=== PATIENT | female | born 1980 | race Caucasian/White ===

== ENCOUNTER 2017-03-13 17:41 | Emergency (ER) | payer MEDICAID ==
[2017-03-13 18:53] LABS: HCG URINE NEGATIVE (NEGATIVE)
== END 2017-03-13 20:38 | disposition home or self-care (01) ==
LOC: D.ER 17:41
PROVIDERS: Emergency Medicine
DX: S39.012A Strain of muscle, fascia and tendon of lower back, initial encounter (principal); X58.XXXA Exposure to other specified factors, initial encounter; Y93.89 Activity, other specified; Y92.89 Other specified places as the place of occurrence of the external cause; M62.838 Other muscle spasm; M54.30 Sciatica, unspecified side; F32.9 Major depressive disorder, single episode, unspecified; F17.200 Nicotine dependence, unspecified, uncomplicated

== ENCOUNTER 2017-05-26 16:34 | Emergency (ER) | payer MEDICAID | END 2017-05-26 16:42 | disposition left against medical advice (07) | LOC: D.ER 16:34 | DX: R52 Pain, unspecified (principal) ==

== ENCOUNTER 2017-06-02 06:40 | Emergency (ER) | payer MEDICAID | END 2017-06-02 07:09 | disposition home or self-care (01) | LOC: D.ER 06:40 | DX: M53.3 Sacrococcygeal disorders, not elsewhere classified (principal); F32.9 Major depressive disorder, single episode, unspecified; F17.200 Nicotine dependence, unspecified, uncomplicated ==

== ENCOUNTER 2018-01-02 19:13 | Emergency (ER) | payer MEDICAID | END 2018-01-02 22:12 | disposition home or self-care (01) | LOC: D.ER 19:13 | DX: S39.012A Strain of muscle, fascia and tendon of lower back, initial encounter (principal); V43.52XA Car driver injured in collision with other type car in traffic accident, initial encounter; Y93.89 Activity, other specified; Y92.410 Unspecified street and highway as the place of occurrence of the external cause; M54.5 Low back pain; F17.200 Nicotine dependence, unspecified, uncomplicated ==

== ENCOUNTER 2018-03-01 07:40 | Emergency (ER) | payer OTHER ==
[2018-03-01 09:49] LABS: ALBUMIN 3.4 g/dL (3.4-5.0); ANION GAP 13.2 mmol/L (8-16); BILIRUBIN - TOTAL 0.37 mg/dL (0.2-1.3); C-REACTIVE PROTEIN 2.2 mg/dL (0.0-0.9); CALCIUM 8.8 mg/dL (8.5-10.1); CARBON DIOXIDE 25.2 mmol/L (21.0-32.0); CREATININE - SERUM 1.3 mg/dL (0.6-1.3); POTASSIUM - SERUM 3.4 mmol/L (3.5-5.1); PROTEIN - SERUM 7.2 g/dL (6.4-8.2)
[2018-03-01 10:05] LABS: BASOPHILS 0.5 % (0-2); EOSINOPHILS 1.7 % (0-7); HEMOGLOBIN 13.1 g/dL (12-16); IMMATURE GRANULOCYTES 0.1 % (0-5); LYMPHOCYTES 28.5 % (15-50); MCH 31.9 pg (26.0-34.0); MCHC 34.5 g/dL (31.0-37.0); MCV 92.5 fL (80.0-100.0); MEAN PLATELET VOLUME 9.5 fL (7.4-10.4); MONOCYTES 6.3 % (2-11); NEUTROPHILS 62.9 % (40-80); PLATELET COUNT 265 10x3/uL (130-400); RBC 4.11 10x6/uL (4.00-5.40); RDW 13.1 % (11.5-14.5); WBC 9.5 10x3/uL (4.8-10.8)
[2018-03-01 11:17] LABS: ERYTHROCYTE SEDIMENTATION RATE 12 mm/hr (0-20)
== END 2018-03-01 10:42 | disposition home or self-care (01) ==
LOC: D.ER 07:40
PROVIDERS: Emergency Medicine
DX: M79.672 Pain in left foot (principal); M79.671 Pain in right foot; S99.922A Unspecified injury of left foot, initial encounter; X58.XXXA Exposure to other specified factors, initial encounter; Y93.89 Activity, other specified; Y92.89 Other specified places as the place of occurrence of the external cause; F17.200 Nicotine dependence, unspecified, uncomplicated

== ENCOUNTER 2018-04-07 23:41 | Emergency (ER) | payer OTHER | END 2018-04-08 00:10 | disposition left against medical advice (07) | LOC: D.ER 23:41 | DX: F32.9 Major depressive disorder, single episode, unspecified (principal) ==

== ENCOUNTER 2018-05-04 22:18 | Emergency (ER) | payer OTHER ==
[~2018-05-04] VITALS: Ht 167.6 cm; Wt 104.5 kg
[2018-05-04 22:26] VITALS: BP 121/82; Ht 167.6 cm; Wt 104.5 kg
[2018-05-04] MEDS ORDERED: HYDROCODON-ACE1 EAC7 (23:32)
== END 2018-05-05 00:14 | disposition home or self-care (01) ==
LOC: D.ER 22:18
DX: R07.9 Chest pain, unspecified (principal)

== ENCOUNTER 2018-07-01 08:48 | Emergency (ER) | payer OTHER ==
[~2018-07-01] VITALS: Ht 167.6 cm; Wt 104.5 kg
[~2018-07-01 08:48] MED LIST: HYDROCODON-ACE1 EAC7
[2018-07-01 08:53] VITALS: Ht 167.6 cm; Wt 104.5 kg
[2018-07-01] MEDS ORDERED: ULTRAM50 MG PO (10:08)
[2018-07-01 10:20] VITALS: BP 148/082
== END 2018-07-01 10:21 | disposition home or self-care (01) ==
LOC: D.ER 08:48
DX: S09.90XA Unspecified injury of head, initial encounter (principal); Y04.2XXA Assault by strike against or bumped into by another person, initial encounter; Y93.89 Activity, other specified; Y92.019 Unspecified place in single-family (private) house as the place of occurrence of the external cause; S80.01XA Contusion of right knee, initial encounter; S02.2XXA Fracture of nasal bones, initial encounter for closed fracture; M25.561 Pain in right knee; F17.200 Nicotine dependence, unspecified, uncomplicated

== ENCOUNTER 2018-08-18 13:55 | Emergency (ER) | payer OTHER ==
[~2018-08-18] VITALS: Ht 167.6 cm; Wt 104.5 kg
[~2018-08-18 13:55] MED LIST changes: +ULTRAM50 MG PO
[2018-08-18 14:00] VITALS: Ht 167.6 cm; Wt 104.5 kg
[2018-08-18 14:49] LABS: BASOPHILS 0.5 % (0-2); EOSINOPHILS 0.8 % (0-7); HEMATOCRIT 39.2 % (36.0-48.0); HEMOGLOBIN 13.5 g/dL (12-16); IMMATURE GRANULOCYTES 0.3 % (0-5); MCH 32.1 pg (26.0-34.0); MCHC 34.4 g/dL (31.0-37.0); MCV 93.3 fL (80.0-100.0); MEAN PLATELET VOLUME 9.8 fL (7.4-10.4); MONOCYTES 6.7 % (2-11); NEUTROPHILS 74.7 % (40-80); PLATELET COUNT 240 10x3/uL (130-400); RDW 13.5 % (11.5-14.5); WBC 8.7 10x3/uL (4.8-10.8)
[2018-08-18 14:52] LABS: APPEARANCE HAZY (CLEAR); COLOR DK YELLOW (YELLOW); GLUCOSE 1000 mg/dL (NEGATIVE); KETONE SMALL mg/dL (NEGATIVE); NITRITE NEGATIVE (NEGATIVE); PROTEIN 1+ mg/dL (NEGATIVE); SPECIFIC GRAVITY 1.025 (1.005-1.020)
[2018-08-18 14:53] LABS: BILIRUBIN NEGATIVE (NEGATIVE); EPITHELIAL CELLS RARE /hpf (0-5); RED CELLS - URINE RARE /hpf (0-5); UROBILINOGEN NORMAL (NORMAL); WHITE CELLS - URINE NSEEN /hpf (0-5)
[2018-08-18 15:00] LABS: HCG SERUM NEGATIVE (NEGATIVE)
[2018-08-18 15:01] LABS: ALBUMIN 3.7 g/dL (3.4-5.0); ANION GAP 19.7 mmol/L (8-16); BILIRUBIN - TOTAL 0.52 mg/dL (0.2-1.3); CALCIUM 9.1 mg/dL (8.5-10.1); CARBON DIOXIDE 19.6 mmol/L (21.0-32.0); POTASSIUM - SERUM 3.3 mmol/L (3.5-5.1)
[2018-08-18 15:03] LABS: UDS - AMPHET NEGATIVE QUAL (NEGATIVE); UDS - BARB NEGATIVE QUAL (NEGATIVE); UDS - BENZO NEGATIVE QUAL (NEGATIVE); UDS - COCAINE NEGATIVE QUAL (NEGATIVE); UDS - OPIATE NEGATIVE QUAL (NEGATIVE); UDS - PCP NEGATIVE QUAL (NEGATIVE); UDS - THC NEGATIVE QUAL (NEGATIVE)
[2018-08-18 18:31] VITALS: BP 158/078
== END 2018-08-18 18:33 ==
LOC: D.ER 13:55
PROVIDERS: Emergency Medicine
DX: T14.91XA Suicide attempt, initial encounter (principal); X83.8XXA Intentional self-harm by other specified means, initial encounter; Y93.89 Activity, other specified; Y92.017 Garden or yard in single-family (private) house as the place of occurrence of the external cause; F32.9 Major depressive disorder, single episode, unspecified; R45.1 Restlessness and agitation; I10 Essential (primary) hypertension

== ENCOUNTER 2018-09-06 12:12 | Emergency (ER) | payer OTHER ==
[~2018-09-06] VITALS: Ht 167.6 cm; Wt 104.5 kg
[2018-09-06 12:17] VITALS: Ht 167.6 cm; Wt 104.5 kg
[2018-09-06] MEDS ORDERED: CLEOCIN HCL300 MG PO (13:41)
[2018-09-06] MEDS ORDERED: HYDROCODONE-IB1 EAC3 PO (13:45)
[2018-09-06 14:17] VITALS: BP 140/86
== END 2018-09-06 14:20 | disposition home or self-care (01) ==
LOC: D.ER 12:12
DX: L03.012 Cellulitis of left finger (principal); I10 Essential (primary) hypertension; F17.200 Nicotine dependence, unspecified, uncomplicated

== ENCOUNTER 2018-09-12 13:36 | Emergency (ER) | payer OTHER ==
[~2018-09-12] VITALS: Ht 167.6 cm; Wt 96.4 kg
[~2018-09-12 13:36] MED LIST changes: +CLEOCIN HCL300 MG PO; +HYDROCODONE-IB1 EAC3 PO
[2018-09-12 13:47] VITALS: Ht 167.6 cm; Wt 96.4 kg
[2018-09-12] MEDS ORDERED: TORADOL10 MG PO (14:54)
[2018-09-12 15:54] VITALS: BP 130/68
== END 2018-09-12 16:08 | disposition home or self-care (01) ==
LOC: D.ER 13:36
DX: S90.31XA Contusion of right foot, initial encounter (principal); W20.8XXA Other cause of strike by thrown, projected or falling object, initial encounter; Y93.89 Activity, other specified; Y92.019 Unspecified place in single-family (private) house as the place of occurrence of the external cause; I10 Essential (primary) hypertension; F17.200 Nicotine dependence, unspecified, uncomplicated

== ENCOUNTER 2018-10-11 17:31 | Emergency (ER) | payer OTHER ==
[~2018-10-11] VITALS: Ht 167.6 cm; Wt 95.0 kg
[~2018-10-11 17:31] MED LIST changes: +TORADOL10 MG PO
[2018-10-11 17:41] VITALS: BP 131/83; Ht 167.6 cm; Wt 95.0 kg
== END 2018-10-11 19:08 | disposition left against medical advice (07) ==
LOC: D.ER 17:31
DX: H92.01 Otalgia, right ear (principal)

== ENCOUNTER 2019-01-18 08:30 | Emergency (ER) | payer OTHER ==
[~2019-01-18] VITALS: Ht 167.6 cm; Wt 97.5 kg
[2019-01-18 08:35] VITALS: BP 164/101; Ht 167.6 cm; Wt 97.5 kg
[2019-01-18 08:58] LABS: HCG URINE NEGATIVE (NEGATIVE)
[2019-01-18 09:04] LABS: UDS - AMPHET POSITIVE QUAL (NEGATIVE); UDS - BARB NEGATIVE QUAL (NEGATIVE); UDS - BENZO NEGATIVE QUAL (NEGATIVE); UDS - COCAINE POSITIVE QUAL (NEGATIVE); UDS - OPIATE NEGATIVE QUAL (NEGATIVE); UDS - PCP NEGATIVE QUAL (NEGATIVE); UDS - THC NEGATIVE QUAL (NEGATIVE)
[2019-01-18 09:36] LABS: APPEARANCE CLEAR (CLEAR); BACTERIA FEW /hpf (NONE SEEN); BILIRUBIN NEGATIVE (NEGATIVE); COLOR YELLOW (YELLOW); EPITHELIAL CELLS 0-5 /hpf (0-5); GLUCOSE NEGATIVE (NEGATIVE); KETONE NEGATIVE (NEGATIVE); MUCUS <1+ /lpf (NONE SEEN); NITRITE NEGATIVE (NEGATIVE); PROTEIN TRACE mg/dL (NEGATIVE); RED CELLS - URINE RARE /hpf (0-5); SPECIFIC GRAVITY 1.015 (1.005-1.020); UROBILINOGEN NORMAL (NORMAL); WHITE CELLS - URINE OCC /hpf (0-5)
[2019-01-21 16:14] LABS: CHLAMYDIA TRACHOMATIS, NAA Negative (Negative)
== END 2019-01-18 10:17 | disposition home or self-care (01) ==
LOC: D.ER 08:30
PROVIDERS: Family Medicine
DX: N89.8 Other specified noninflammatory disorders of vagina (principal); K12.0 Recurrent oral aphthae; F19.10 Other psychoactive substance abuse, uncomplicated

== ENCOUNTER 2019-01-18 15:46 | Emergency (ER) | payer OTHER ==
[~2019-01-18] VITALS: Ht 167.6 cm; Wt 90.9 kg
[2019-01-18 15:54] VITALS: Ht 167.6 cm; Wt 90.9 kg
[2019-01-18 16:50] LABS: BASOPHILS 0.5 % (0-2); EOSINOPHILS 1.5 % (0-7); HEMATOCRIT 35.6 % (36.0-48.0); HEMOGLOBIN 12.5 g/dL (12-16); IMMATURE GRANULOCYTES 0.1 % (0-5); LYMPHOCYTES 22.9 % (15-50); MCH 31.7 pg (26.0-34.0); MCHC 35.1 g/dL (31.0-37.0); MCV 90.4 fL (80.0-100.0); MEAN PLATELET VOLUME 9.8 fL (7.4-10.4); MONOCYTES 6.8 % (2-11); NEUTROPHILS 68.2 % (40-80); PLATELET COUNT 199 10x3/uL (130-400); RBC 3.94 10x6/uL (4.00-5.40); RDW 13.2 % (11.5-14.5); WBC 8.8 10x3/uL (4.8-10.8)
[2019-01-18 17:05] LABS: ANION GAP 15.3 mmol/L (8-16); BILIRUBIN - TOTAL 0.57 mg/dL (0.2-1.3); CALCIUM 9.1 mg/dL (8.5-10.1); CREATININE - SERUM 1.2 mg/dL (0.6-1.3); MAGNESIUM - SERUM 1.8 mg/dL (1.8-2.4); POTASSIUM - SERUM 3.3 mmol/L (3.5-5.1); PROTEIN - SERUM 7.7 g/dL (6.4-8.2)
[2019-01-18 17:23] LABS: UDS - AMPHET POSITIVE QUAL (NEGATIVE); UDS - BARB NEGATIVE QUAL (NEGATIVE); UDS - BENZO NEGATIVE QUAL (NEGATIVE); UDS - COCAINE POSITIVE QUAL (NEGATIVE); UDS - OPIATE NEGATIVE QUAL (NEGATIVE); UDS - PCP NEGATIVE QUAL (NEGATIVE); UDS - THC NEGATIVE QUAL (NEGATIVE)
[2019-01-18 17:33] LABS: APPEARANCE CLEAR (CLEAR); BILIRUBIN NEGATIVE (NEGATIVE); COLOR YELLOW (YELLOW); GLUCOSE NEGATIVE (NEGATIVE); KETONE NEGATIVE (NEGATIVE); NITRITE NEGATIVE (NEGATIVE); PROTEIN TRACE mg/dL (NEGATIVE); UROBILINOGEN NORMAL (NORMAL)
[2019-01-18 17:49] LABS: BACTERIA MODERATE /hpf (NONE SEEN); EPITHELIAL CELLS 0-5 /hpf (0-5); RED CELLS - URINE OCC /hpf (0-5); WHITE CELLS - URINE 0-5 /hpf (0-5)
[2019-01-18 19:12] LABS: HCG URINE NEGATIVE (NEGATIVE)
[2019-01-18 21:11] VITALS: BP 110/68
== END 2019-01-18 22:19 ==
LOC: D.ER 15:46
PROVIDERS: Family Medicine
DX: R45.851 Suicidal ideations (principal); F19.10 Other psychoactive substance abuse, uncomplicated

== ENCOUNTER 2019-03-14 14:51 | Emergency (ER) | payer MEDICAID ==
[2019-01-18 15:54] VITALS: BMI 32.3
[2019-03-14 15:56] LABS: APPEARANCE CLEAR (CLEAR); BILIRUBIN NEGATIVE (NEGATIVE); COLOR STRAW (YELLOW); GLUCOSE NEGATIVE (NEGATIVE); KETONE NEGATIVE (NEGATIVE); NITRITE NEGATIVE (NEGATIVE); PROTEIN NEGATIVE (NEGATIVE); SPECIFIC GRAVITY 1.005 (1.005-1.020); UROBILINOGEN NORMAL (NORMAL)
[2019-03-14 15:58] LABS: BACTERIA FEW /hpf (NONE SEEN); RED CELLS - URINE 0-5 /hpf (0-5); WHITE CELLS - URINE 0-5 /hpf (0-5)
[2019-03-14 15:59] LABS: HCG URINE NEGATIVE (NEGATIVE)
[2019-03-14 16:06] LABS: UDS - AMPHET POSITIVE QUAL (NEGATIVE); UDS - BARB NEGATIVE QUAL (NEGATIVE); UDS - BENZO NEGATIVE QUAL (NEGATIVE); UDS - COCAINE POSITIVE QUAL (NEGATIVE); UDS - OPIATE NEGATIVE QUAL (NEGATIVE); UDS - PCP NEGATIVE QUAL (NEGATIVE); UDS - THC NEGATIVE QUAL (NEGATIVE)
[2019-03-14 16:46] VITALS: BP 153/102
== END 2019-03-14 16:46 | disposition home or self-care (01) ==
LOC: D.ER 14:51
PROVIDERS: Emergency Medicine
DX: F41.9 Anxiety disorder, unspecified (principal); Z91.5 Personal history of self-harm; F15.10 Other stimulant abuse, uncomplicated

== ENCOUNTER 2019-05-09 02:57 | Emergency (ER) | payer OTHER ==
[~2019-05-09] VITALS: Ht 167.6 cm; Wt 95.0 kg
[2019-05-09 03:01] VITALS: Ht 167.6 cm; Wt 95.0 kg
[2019-05-09] MEDS ORDERED: FLOXIN 0.3 % OTI5 ML LEFT EAR (03:26)
[2019-05-09 03:46] VITALS: BP 160/81
== END 2019-05-09 03:47 | disposition home or self-care (01) ==
LOC: D.ER 02:57
DX: H60.92 Unspecified otitis externa, left ear (principal)

== ENCOUNTER 2019-07-03 14:35 | Emergency (ER) | payer OTHER ==
[2019-05-09 03:01] VITALS: BMI 33.8
[~2019-07-03 14:35] MED LIST changes: +FLOXIN 0.3 % OTI5 ML LEFT EAR
== END 2019-07-03 15:16 | disposition left against medical advice (07) ==
LOC: D.ER 14:35
DX: M54.2 Cervicalgia (principal)

== ENCOUNTER 2019-11-21 03:50 | Inpatient (IN) | payer OTHER ==
[2019-11-21] VITALS (13 sets, daily range): BP systolic 101–139; BP diastolic 65–88; Ht 167.6 cm; Wt 84.1 kg
[~2019-11-21] VITALS: Ht 167.6 cm; Wt 84.1 kg
--- NOTE | 2019-11-21 04:23 | NUR ---
PT STANDING AT BEDSIDE. PT STATES THAT SHE NEEDS TO URINATE PT GIVEN BEDSIDE COMMODE. PT UNABLE TO URIANTE. IN AND OUT CATH DONE. URINE SENT TO LAB
[2019-11-21 04:27] LABS: APPEARANCE CLEAR (CLEAR); COLOR DK YELLOW (YELLOW); SPECIFIC GRAVITY 1.025 (1.005-1.020)
[2019-11-21 04:28] LABS: BILIRUBIN NEGATIVE (NEGATIVE); GLUCOSE NEGATIVE (NEGATIVE); HCG URINE NEGATIVE (NEGATIVE); KETONE MODERATE mg/dL (NEGATIVE); NITRITE NEGATIVE (NEGATIVE); PROTEIN NEGATIVE (NEGATIVE); UROBILINOGEN NORMAL (NORMAL)
[2019-11-21 04:30] LABS: UDS - AMPHET POSITIVE QUAL (NEGATIVE); UDS - BARB NEGATIVE QUAL (NEGATIVE); UDS - BENZO POSITIVE QUAL (NEGATIVE); UDS - COCAINE POSITIVE QUAL (NEGATIVE); UDS - OPIATE NEGATIVE QUAL (NEGATIVE); UDS - PCP NEGATIVE QUAL (NEGATIVE); UDS - THC NEGATIVE QUAL (NEGATIVE)
[2019-11-21 04:33] LABS: BASOPHILS 0.4 % (0-2); EOSINOPHILS 0.7 % (0-7); HEMATOCRIT 40.8 % (36.0-48.0); HEMOGLOBIN 13.7 g/dL (12-16); IMMATURE GRANULOCYTES 0.2 % (0-5); LYMPHOCYTES 25.5 % (15-50); MCH 31.7 pg (26.0-34.0); MCHC 33.6 g/dL (31.0-37.0); MCV 94.4 fL (80.0-100.0); MEAN PLATELET VOLUME 9.6 fL (7.4-10.4); NEUTROPHILS 66.2 % (40-80); PLATELET COUNT 225 10x3/uL (130-400); RBC 4.32 10x6/uL (4.00-5.40)
[2019-11-21 04:43] LABS: ANION GAP 16.1 mmol/L (8-16); CALCIUM 9.4 mg/dL (8.5-10.1); CARBON DIOXIDE 25.5 mmol/L (21.0-32.0); CREATININE - SERUM 1.1 mg/dL (0.6-1.3); POTASSIUM - SERUM 3.6 mmol/L (3.5-5.1)
[2019-11-21 04:48] LABS: ALBUMIN 3.8 g/dL (3.4-5.0); BILIRUBIN - TOTAL 1.1 mg/dL (0.2-1.3); MAGNESIUM - SERUM 1.8 mg/dL (1.8-2.4); PROTEIN - SERUM 7.8 g/dL (6.4-8.2)
--- NOTE | 2019-11-21 04:59 | NUR ---
pt finished charcoal reluctantly at this time.
--- NOTE | 2019-11-21 05:03 | NUR ---
pt has redness to thighs and buttocks pt states that she had been walking around soaking wet for 2 days and her pants had "rubbed her raw" pt c/o pain to thighs and buttocks. informed.
--- NOTE | 2019-11-21 05:10 | NUR ---
pt sitting up in bed at this time talking on the phone and watching tv. pt states that she did some ICE 3 days ago
--- NOTE | 2019-11-21 05:30 | NUR ---
pt having bowel movement at this time.
--- NOTE | 2019-11-21 05:37 | NUR ---
PT UP TO BEDSIDE COMMODE AT THIS TIME LIQUID GREEN BM.
--- NOTE | 2019-11-21 06:00 | NUR ---
PT UP TO BEDSIDE COMMODE AT THIS TIME. PT WEARING DEPENDS NOW.
--- NOTE | 2019-11-21 06:08 | NUR ---
PSYCH CASE MANAGEMENT ASSISTANT AT BEDSIDE. PT GIVEN WATER TO DRINK
--- NOTE | 2019-11-21 06:53 | NUR ---
DR AZEVEDO NOTIFIED AND SITTER ORDERED. SITTER AT BEDSIDE. NOTIFIED CHARGE NURSE AND ATTENDING IN REGARDS TO ASSESSMENT FINDINGS. RESOURCES GIVEN TO PT AND SAFETY PLAN INITIATED.
--- NOTE | 2019-11-21 11:30 | NUR ---
0715 PT ARRIVED IN ICU VIA STRECHER, AWAKE AND VERY RESTLESS, SHE HAD ON AN ADULT BRIEF AND NEEDED TO DEICATE SHE WAS ASSISTED TO THE BSC WHERE SHE HAD LIQUID STOOL
--- NOTE | 2019-11-21 16:04 | NUR ---
1500 PT AWAKE LUNCH TRAY SERVED PT FEEDING SELF WHEN SUDDENLY SHE JUMPED OUT OF BED AND RIPPED OUTHER IV TORE OFF HER CLOTHES AND STATED SHE WAS LEAVING SECURITY CALLED 1530 AFTER 30 MINS PATIENT TALKED DOWN AND HALDOL GIVEN.. SHE CONITNUES TO RANT AND STATE IF SHE GETS OUT OF HERE SHE WILL KILL HERSELF. SHE RANTS ON AND ON ABOUT HER /BOYFRIEND AND HIS GIRLFRIEND ... 1600 PT IS WITHOUT IV OR MONITORING EQUIPMENT SHE REFUSES TO WEAR.
--- NOTE | 2019-11-21 17:03 | NUR ---
[address] GALE CALLED AND ORDERS RECIEVED.. HALDOL AND ATIVAN GIVEN INTO RIGHT DELTOID
--- NOTE | 2019-11-21 18:39 | NUR ---
1800 PT IS SLEEPING AT THIS TIME... CONTINUES WITHOUT MONITORING EQUIPMENT
--- NOTE | 2019-11-21 19:00 | NUR ---
PT LYING IN BED RESTING. SITTER AT BEDSIDE. WILL CONTINUE TO OBSERVE.
--- NOTE | 2019-11-22 01:00 | NUR ---
PT LYING IN BED RESTING, MONITORS ON AND WORKING, VITALS STABLE. WILL CONTINUE TO OBSERVE.
--- NOTE | 2019-11-22 01:18 | NUR ---
PT IS RELUCTANT TO ANSWER QUESTIONS AND IS VERY SLEEPY. PT DENIES SI AT THIS TIME. SITTER AT BEDSIDE FOR SUICIDE RISK.
[2019-11-22 03:00] VITALS: BP 123/75
--- NOTE | 2019-11-22 03:00 | NUR ---
PT LYING IN BED RESTING, MONITORS ON AND WORKING, VITALS STABLE, SITTER AT BEDSIDE, SEE FLOW SHEET FOR FURTHER DETAILS.
--- NOTE | 2019-11-22 05:00 | NUR ---
PT LYING IN BED RESTING, NO SIGNS/SYMPTOMS OF PAIN OR DISCOMFORT NOTED. WILL CONTINUE TO OBSERVE.
[2019-11-22 07:00] VITALS: BP 114/65
--- NOTE | 2019-11-22 10:40 | NUR ---
AWAKE AND CRYING, UP OUT OF THE [place] DOORS TO ANTE ROOM BECAUSE ITS NOT A BATHROOM, BSC TO ROOM, SOILED PAPER SCRUBS, NEW BREIF TO BEDSIDE, USING PROFANITY AND ASKING THAT I CALL HER TO SEE IF HE HAS PUT HER OUT, HALDOL 5MG IM GIVEN PER PRN ORDER AFTER SHE AGREES
[2019-11-22 11:00] VITALS: BP 129/55
--- NOTE | 2019-11-22 11:15 | NUR ---
SLEEPING WITH NO SIGNS OF DISTRESS, WILL CONTINUE TO MONITOR, SITTER AT BEDSIDE
--- NOTE | 2019-11-22 13:23 | CN ---
PATIENT NAME:TARA ROSALES MEDICAL RECORD: [id number] : 80 LOCATION:[id number] ADMIT DATE: 11/21/19 ACCOUNT: [id number] CONSULTING PHYSICIAN: KYREE AZEVEDO MD REFERRING PHYSICIAN: DEMARIO JEONG MD DATE OF CONSULTATION: 11/21/2019 IDENTIFYING DATA: The patient is 39 years old and she is admitted to the hospital on a voluntary basis secondary to an overdose. CHIEF COMPLAINT: "My is cheating on me." HISTORY OF PRESENT ILLNESS: The patient apparently has a fairly chaotic and dysfunctional home life and similarly dysfunctional and chaotic interpersonal relations. She apparently was quite upset yesterday, drank some gin and took an overdose of Xanax prior to being taken to the hospital. Interestingly, her urine drug screen is also positive for amphetamines and cocaine. She took this overdose in a deliberate attempt to harm herself and she is still having suicidal thoughts. The patient denies thoughts of harming others and psychotic symptoms. She is extremely labile, crying, rubbing her hands through her hair and displaying a very high degree of emotional distress. She tells me she has a history of bipolar disorder, but when asked about various mood stabilizing medicines she has never been treated with any. She also tells me that she sees a counselor named Reba at the [facility], but Reba is not a physician and does not prescribe medications and she has never seen a psychiatrist at the agency. ASSESSMENT: 1. Status post overdose. 2. Major depression versus bipolar disorder. 3. 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 4. Polysubstance abuse. PLAN: The patient at this time is acutely dangerous in my view. Once medically stabilized, she should be confined to inpatient psychiatric care. She has been treated on an inpatient basis at [facility] in the past and says that she was not happy with the care there and would prefer to go somewhere else. Obviously, that is dependent upon insurance coverage and bed availability, but I think it would be reasonable to accommodate her if practical and I have told her it may not be possible to accommodate this wish. At the same time, I am unwilling to let her leave the hospital and just go to followup care on an outpatient basis. By that I mean specifically she should be committed if she refused to go to inpatient care voluntarily. I have ordered some Haldol for her secondary to her high level of emotional distress and will follow up with her tomorrow if she has now been moved to inpatient psychiatric care. TRANSINT:[id number] Voice Confirmation ID: [id number] DOCUMENT ID: [id number] CONSULT REPORT [id number] TARA ROSALES PETER MD at 1323 CC: [id number] DICTATION DATE: 11/21/19 1145 LOSS CONTROL ENGINEER: 11/21/19 2357 ADM IN [id number] [place] [address]
[2019-11-22 15:00] VITALS: BP 128/60
--- NOTE | 2019-11-22 15:38 | NUR ---
PT DENIED SUICIDE IDEATION INITIALLY BUT THEN STARTED ASKING THIS NURSE TO KILL HER. PT STATED, "I JUST WANT TO AND NOT LIVE ANYMORE." COPING SKILLS REVIEWED WITH PT BUT PT SHOWED NO SIGNS OF UNDERSTANDING. PT YELLING AND CRYING. UNABLE TO CALM DOWN. PT VERY ANXIOUS AND RESTLESS. SITTER AT BEDSIDE FOR SUICIDE RISK. WILL CONTINUE TO MONITOR.
--- NOTE | 2019-11-22 16:05 | NUR ---
OBTAIN ROOM AT [facility] IN [place], PER CASE MANAGEMENT, PC TO ELIZABETH AND REPORT GIVEN FOR PENDING TRANSFER 1615 TO PATIENT ROOM, EXPLAINED THAT SHE, WOULD BE GOING TO [place] TO [facility] STATED SHE WOULD NOT SIGN PAPER UNTIL SHE SPOKE WITH HER 1630 PC TO SPOUSE PER REQUEST, MR JENNIFER ORONA, STATED SHE THE PATIENT IS HIS X GIRLFRIEND AND NOT HIS AND HE DID NOT WANT TO SEE HER, HE WANTED ME TO TELL HER AND ISTATED THAT HE WOULD HAVE TO TELL HER HIMSELF AND ALLOW HER TO SPEAK WITH HIM
--- NOTE | 2019-11-22 16:40 | NUR ---
PHONE PLACED IN ROOM FOR PATIENT, SHE BEGAN TO TALK LOUD AND CRY UNCONTROLABLY, UP SET THAT STATED X BOY FRIEND IS NOT WANTING TO TALK WITH HER AND HE HANGS UP THE PHONE AND SHE SLAMS THE FUEL SYSTEM MAINTENANCE WORKER DOWN AND GETS OUT OF BED AND STARTS TO RIP HER PAPER SCRUBS OFF AND GOES TO THE WINDOW AND STARTS BEATING ON IT WITH HER FIST, I TELL HER THAT SHE NEEDS TO CALM DOWN AND SHE BECOMES BELIGERANT USING PROFANITY AND STATED " WHO IS GOING TO MAKE ME, YOU ARE JUST LIKE THAT BLACK JASPER ALANCH THAT LEFT HER MAKE UP ON MY PILLOWS" I ASKED HER NOT TO SPEAK TO ME IN THAT WAY AND SHE STOMPED HER FOOT AND CONTINUED TO GET DRESS IN HER NEW SET OF PAPER SCRUBS 1699 [facility] HERE FOR TRANSPORT, PATIENT WENT WITHOUT ANY TROUBLE
--- NOTE | 2019-11-23 15:20 | PN ---
PATIENT:TARA ROSALES MEDICAL RECORD: [id number] LOCATION:[facility].231 ADMISSION DATE: 11/21/19 PROGRESS NOTE DATE OF SERVICE: 11/22/2019 SUBJECTIVE: The patient's case was discussed with staff and the chart was reviewed. OBJECTIVE: The patient is sleepy, but arousable. She is partially oriented. She continues to say she wants to kill herself, but does not want to go into a psychiatric hospital. She intermittently is having explosive episodes requiring intramuscular Haldol and Ativan to calm her. Once medically stabilized, she should be transferred to inpatient status. ASSESSMENT: Bipolar disorder. PLAN: As above. P.r.n. medicines for agitation will be continued and the patient will be transferred to inpatient care once medically stabilized. TRANSINT:[id number] Voice Confirmation ID: [id number] DOCUMENT ID: [id number] KYREE AZEVEDO MD at 1520 CC: [id number] DICTATION DATE: 11/22/19 1614 SOFT TOP INSTALLER: 11/22/19 2320 DIS IN 11/22/19 [facility] [address] [place] [address]
--- NOTE | 2019-11-23 18:47 | MORECARE ---
CASE MANAGEMENT DISCHARGE SUMMARY PATIENT: TARA ROSALES UNIT: [id number] ADM DATE: 11/21/19 AGE: 39 : 80 SEX: F ROOM/BED: D.2316 AUTHOR: ANDERS SNOW PHYSICIAN: REFERRING PHYSICIAN: DEMARIO JEONG MD DATE OF SERVICE: 11/23/19 Discharge Plan Patient Name: TARA ROSALES Facility: [facility]:[place] : 1980 Planned Disposition: Psych facility Anticipated Discharge Date: Discharge Date: 11/22/2019 Expected LOS: Initial Reviewer: [email or web address] Initial Review Date: 11/21/2019 Generated: 11/23/19 7:46 pm External Providers External Provider: [facility] Next Contact Date: Service Request Date: Service Type: Resolution: Reviewer: Comments: Patient Name: TARA ROSALES Page [phone] at 1847 All edits/amendments must be made on the electronic document DICTATION DATE: 11/23/191845 RESIDENTIAL COLLECTIONS: NEAL 11/23/191845 RPT#: [id number] DC DATE:11/22/19 STATUS: DIS IN [id number] [place] [address] END OF REPORT
--- NOTE | 2019-11-23 18:54 | MORECARE ---
CASE MANAGEMENT DISCHARGE SUMMARY PATIENT: TARA ROSALES UNIT: [id number] ADM DATE: 11/21/19 AGE: 39 : 80 SEX: F ROOM/BED: D.2316 AUTHOR: ANDERS SNOW PHYSICIAN: REFERRING PHYSICIAN: DEMARIO JEONG MD DATE OF SERVICE: 11/23/19 Discharge Plan Patient Name: TARA ROSALES Facility: [facility]:[place] : 1980 Planned Disposition: Psych facility Anticipated Discharge Date: Discharge Date: 11/22/2019 Expected LOS: Initial Reviewer: [email or web address] Initial Review Date: 11/21/2019 Generated: 11/23/19 7:54 pm Comments DCP- Discharge Planning Updated by [email or web address]: Ute Moore on 11/23/19 5:[address] CM called transfer center and faxed records. Patient is willing to go to facility on voluntary basis. CM received call later that patient has been accepted to [facility] [place] and Dr. Augustin accepting. CM notified [facility] for transport. Last DP export: 11/23/19 5:47 p Patient Name: TARA ROSALES Page [phone] at 1854 All edits/amendments must be made on the electronic document DICTATION DATE: 11/23/191853 WHIPPER BEATER: NEAL 11/23/191853 RPT#: [id number] DC DATE:11/22/19 STATUS: DIS IN [facility] [address] [place] [address] END OF REPORT
== END 2019-11-22 17:05 | disposition short-term general hospital (02) | DRG 918 ==
LOC: D.ER 03:50 → D.ICU 05:16
PROVIDERS: Emergency Medicine; ADMIT Family Medicine; ATTEND Family Medicine
DX: T42.4X2A Poisoning by benzodiazepines, intentional self-harm, initial encounter (principal); F31.9 Bipolar disorder, unspecified; I10 Essential (primary) hypertension; E78.5 Hyperlipidemia, unspecified; R00.0 Tachycardia, unspecified; F19.10 Other psychoactive substance abuse, uncomplicated

== ENCOUNTER 2020-03-12 20:08 | Emergency (ER) | payer OTHER ==
[~2020-03-12] VITALS: Ht 167.6 cm; Wt 75.0 kg
[2020-03-12 20:13] VITALS: Ht 167.6 cm; Wt 75.0 kg
[2020-03-12 20:27] LABS: BILIRUBIN NEGATIVE (NEGATIVE); GLUCOSE NEGATIVE (NEGATIVE); KETONE NEGATIVE (NEGATIVE); NITRITE NEGATIVE (NEGATIVE); UROBILINOGEN NORMAL (NORMAL)
[2020-03-12] MEDS ORDERED: FLAGYL500 MG PO (20:27)
[2020-03-12] MEDS ORDERED: DIFLUCAN150 MG PO (20:41)
[2020-03-12] MEDS ORDERED: GYNE-LOTRIMIN-745 GM VG (20:41)
[2020-03-12 21:23] VITALS: BP 136/75
[2020-03-14 21:06] LABS: CHLAMYDIA TRACHOMATIS, NAA Negative (Negative)
== END 2020-03-12 21:23 | disposition home or self-care (01) ==
LOC: D.ER 20:08
PROVIDERS: Family Medicine
DX: N76.0 Acute vaginitis (principal); B37.3 Candidiasis of vulva and vagina; I10 Essential (primary) hypertension; E78.5 Hyperlipidemia, unspecified; Z72.0 Tobacco use

== ENCOUNTER 2020-07-21 08:04 | Emergency (ER) | payer OTHER ==
[~2020-07-21] VITALS: Ht 167.6 cm; Wt 90.9 kg
[~2020-07-21 08:04] MED LIST changes: +DIFLUCAN150 MG PO; +FLAGYL500 MG PO; +GYNE-LOTRIMIN-745 GM VG
[2020-07-21 08:18] VITALS: Ht 167.6 cm; Wt 90.9 kg
[2020-07-21] MEDS ORDERED: AUGMENTIN 875-11 TAB PO (09:04)
[2020-07-21] MEDS ORDERED: IBUPROFEN800 MG PO (09:04)
[2020-07-21] MEDS ORDERED: FLUTICASONE PRO16 GM NASAL (09:04)
[2020-07-21 09:37] VITALS: BP 122/72
== END 2020-07-21 09:38 | disposition home or self-care (01) ==
LOC: D.ER 08:04
DX: J01.90 Acute sinusitis, unspecified (principal); M25.511 Pain in right shoulder; G89.29 Other chronic pain; I10 Essential (primary) hypertension; E78.5 Hyperlipidemia, unspecified; Z72.0 Tobacco use

== ENCOUNTER 2020-08-16 17:42 | Emergency (ER) | payer OTHER ==
[~2020-08-16] VITALS: Ht 167.6 cm; Wt 90.9 kg
[~2020-08-16 17:42] MED LIST changes: +AUGMENTIN 875-11 TAB PO; +FLUTICASONE PRO16 GM NASAL; +IBUPROFEN800 MG PO
[2020-08-16 17:55] VITALS: BP 135/57; Ht 167.6 cm; Wt 90.9 kg
== END 2020-08-16 22:27 | disposition left against medical advice (07) ==
LOC: D.ER 17:42
DX: R33.9 Retention of urine, unspecified (principal)